=== PATIENT | female | born 1945 | race Two or more races ===

== ENCOUNTER 2021-11-14 04:52 | Inpatient (IN) | payer OTHER ==
[~2021-11-14] VITALS: Ht 152.4 cm; Wt 52.2 kg
--- NOTE | 2021-11-14 05:02 | NUR ---
SE RECIBE PACIENTE EN AMBULANCIA ALERTA Y ORIENTADA X3. PARAMEDICOS REFIEREN QUE LA LLAMA QUE REALIZADA A LA AMBULANCIA FUE POR CAIDA, AL LLEGAR AL LUGAR PACIENTE PRESENTABA SOB. PACIENTE LLEGA CON NON-REABRETHER SATURANDO 100% LA MISMA INDICA QUE SE MAC EN EL HOGAR ANTES DE LLEGAR Y QUE SE GOLPEO EN LA VERONICA. SE OBSERVA PACIENTE CON EDEMA EN AMBOS PIES. Y HERIDA EN MANO IZQUIERDA. SE MONITOREAN S/V Y SE UBICA PACIENTE.
--- NOTE | 2021-11-14 05:03 | NUR ---
AL MOMENTO DE LLEGADA DE PACIENTE PARAMEDICOS REFIEREN QUE EL FAMILIAR SE QUEDO [facility] A FUMAR. AL MOMENTO DE TRIAGE, PACIENTE SE ENCUENTRA CHATO CON LOS PARAMEDICOS.
--- NOTE | 2021-11-14 05:45 | NUR ---
PACIENTE EVALUADA POR DR ONESIMO HENDERSON [place] [facility], SE LE ORIENTA A PACIENTE SOBRE EL MISMO Y VERBALIZA ENTENDER.LE COLECTAN MUESTRAS DE LABORATORIO Y LE CANALIZAN BAJO MEDIDAS ASEPTICAS. SE LE REALIZA EKG. PACIENTE MANEJADA POR JASON MARTINI Y JASON LOPEZ. PENDIENTE ESTUDIO.
--- NOTE | 2021-11-14 05:53 | NUR ---
SE LLAMA A BANCO DE [place]A Y [facility] [place] INDICA QUE PACIENTE NO TIENE RECORD PREVIO.
--- NOTE | 2021-11-14 06:31 | NUR ---
PTE REFIERE QUE NO QUIERE QUE SE LE REQUISE UNIDADES DE DE LOLA HASTA QUE SALGAN RESULTADOS DE LA HEMOGLOBINA.
--- NOTE | 2021-11-14 07:49 | NUR ---
SE RECIBE PTE FEMENINA DE 76 YRS ALERTA CONCIENTE Y TRANQUILA EN SELVIN CON BRABDAS ELEVADA. SE LE LEIF S.V LA CUAL SE DOCUMENTA.PTE CON MONITOR CARDIACO PTSE OBSERVA CON FOLIE CATHETE CON UN OUPUT DE COLOR AMARILLO INTENSO. SE LE ORIENTA A PTE SOBRE LA ORDENDE TRANSFUNDIR POR EL DR, ONESIMO LA CUAL LA PTE ALERTA CONCIENTE Y ORIENTADA LA CUAL FIRMA CHERELLE LA ORDEN LA CUAL REHIUSA LA TRANSFUSION. SE MANTIENE CONSULTADA CON EL , CASE INTERNISTA. . SE MANTIENE BAJO OBSERVACION.
--- NOTE | 2021-11-14 08:17 | NUR ---
SE EDUCA A PTE SOBRE TX MED A RECIBIR Y REFIER ENTENDER. SE COLECTAN MUESTRAS DE LAB BAJO MEIDADS ACEPTICAS. PTE SE MANTIENE BAJO OBSERBACION POR CAMBIO EN [place]. PTE SE MANTIENE EN CAMA BAJA CON BARANDAS ELEVADAS.
== END 2021-12-03 15:27 | disposition home or self-care (01) | DRG 812 ==
LOC: ER 04:52 → MEDI 16:55 → SEC-K 16:55 → MEDI 17:08
PROVIDERS: ADMIT Internal Medicine; ATTEND Internal Medicine
PROC: 30233N1 Transfusion of Nonautologous Red Blood Cells into Peripheral Vein, Percutaneous Approach (ICD-10-PCS; principal; 2021-11-15)
DX: D50.8 Other iron deficiency anemias (principal); N39.0 Urinary tract infection, site not specified; J90 Pleural effusion, not elsewhere classified; B96.20 Unspecified Escherichia coli [E. coli] as the cause of diseases classified elsewhere; I48.91 Unspecified atrial fibrillation; E87.6 Hypokalemia; S22.41XD Multiple fractures of ribs, right side, subsequent encounter for fracture with routine healing; Z91.81 History of falling; R63.4 Abnormal weight loss; Z85.3 Personal history of malignant neoplasm of breast